=== PATIENT | male | born 1995 | race Hispanic/Latino ===

== ENCOUNTER 2025-05-31 17:21 | Emergency (ER) | payer MEDICAID, SELFPAY ==
[2025-05-31 17:22] VITALS: BP 157/100
--- NOTE | 2025-05-31 17:41 | ED.GENMED ---
History of Present Illness
General
Chief Complaint: Catheter/Tube Problem
Source: patient and family
Time Seen by Provider: 05/31/25 17:35
History of Present Illness
History of Present Illness:
30-year-old male with past medical history of chronic kidney disease (dialysis Friday, , Friday), autism, hypertension presenting to the emergency department for evaluation after his fistula was bleeding following dialysis this afternoon
since 330, due to the persistent bleeding was recommended to come to the ER for further evaluation. Patient without any concerns at this time. Denies any focal weakness, numbness, tingling or color changes to the extremity.
Past History
Past History
ED Past Medical History: HTN, Renal failure and Other (Autistic)
ED Past Surgical History: None
Social History
Tobacco: Non-smoker
Alcohol: None
Drug: None
Personal: Single
Living: with family
Review of Systems
Review of Systems
All Other Systems: ROS reviewed and negative except as documented in HPI and ROS
Phy Exam
Physical Exam
Physical Exam:
GENERAL: Alert , in no apparent distress
EYE: conjunctiva clear
Head: Normocephalic atraumatic
NECK: Supple,
ENT: mmm.
LUNGS: no acute respiratory distress
NEUROLOGICAL: Alert and oriented
SKIN: Warm and dry, skin intact.
MUSCULOSKELETAL: Fistula to the left upper extremity with palpable thrill and good bruit. Dressing in place. Once dressing was removed there was noted very small ooze from the puncture site at the proximalmost portion of the fistula. Extremity
is otherwise warm and well-perfused, neurovascularly intact.
PSYCH: Normal and appropriate interaction.
Scores
Heart Failure Risk
Heart Failure Risk Score: Not Applicable
Heart Score for Chest Pain Patients
STEMI patient?: Not applicable
Withdrawal Assessment of Alcohol
Withdrawal Assessment Completed?: Not applicable
Course
Vital Signs
Initial and Last Documented VS:
Initial Vital Signs
Temp Pulse Resp BP Pulse Ox
98.7 F 107 17 157/100 99
05/31/25 17:22 05/31/25 17:22 05/31/25 17:22 05/31/25 17:22 05/31/25 17:22
Last Documented Vital Signs
Temp Pulse Resp BP Pulse Ox
98.7 F 107 17 157/100 99
05/31/25 17:22 05/31/25 17:22 05/31/25 17:22 05/31/25 17:22 05/31/25 17:45
MDM/Problems Addressed
Differential Diagnosis Includes:
Post venipuncture bleeding
complication with fistula
Anemia
MDM/Problems Addressed:
30-year-old male presenting the ER for evaluation of bleeding from fistula since 330. At time of arrival bleeding seems to be well-controlled. I did take down the dressing that patient presented with and replaced it with nonadherent pad, Kerlix
and an Prashant wrap for better pressure to the area and applied an ice pack over top of this. Will observe patient in the ER for any further bleeding, anticipate discharge home. Patient follows with vascular surgery at [facility] and I
encouraged the family to contact them for follow-up as needed.
*Pulse Oximetry
SaO2: 99
Oxygen Mode of Delivery: Room air
Patient hypoxic: no
*Critical Care Note
Total Time (30-74mins, 75-104mins- exclusive of procedures): Not Applicable
Patient Management
Escalation/DeEscalation of care consider admission/obs:
After close monitoring patient is without any evidence for further bleeding. Stable for discharge home
ED Attending Note
-
Portions of this chart may have been created with voice recognition software.� Occasional wrong word or��sound alike� substitutions may have occurred due to the inherent limitations of voice recognition software.
Discharge Plan
Departure
Patient Disposition: Home (Routine Discharge)
Date of Disposition: 05/31/25
Time of Disposition: 18:17
Patient with high blood pressure during this ER visit?: Yes
Discharge Problem:
Other complication of arteriovenous dialysis fistula
Instructions: Arteriovenous vascular access for hemodialysis
Prescriptions:
No Action
guaifenesin 200 MG/10 ML liquid
200 mg PO Q4HPRN PRN (Reason: cough)
guaifenesin [Mucus Relief ER] 600 MG tablet extended release 12hr
600 mg PO [id number] PRN (Reason: congestion)
furosemide 40 MG tablet
40 mg PO DAILY Qty: 30 0RF
labetalol 200 MG tablet
300 mg PO BID Qty: 60 0RF
isosorbide mononitrate 60 MG tablet extended release 24 hr
60 mg PO DAILY Qty: 30 0RF
amlodipine 10 MG tablet
10 mg PO DAILY Qty: 30 0RF
ergocalciferol (vitamin D2) 50,000 UNITS capsule
50,000 units PO WEEKLY Qty: 8 0RF
ondansetron 4 MG tablet,disintegrating
4 mg PO TIDPRN PRN (Reason: nausea/vomiting) Qty: 12 0RF
Referrals:
Brooklyn Collins MD [Family Provider, Nephrology]
Interventions
Interventions:
*Risk Screen - Suicide Last Done: 05/31/25 17:24
*General Assessment Last Done: 05/31/25 17:24
*Neglect/Abuse Screening Last Done: 05/31/25 17:24
*ED COVID-19 Vaccine History Last Done: 05/31/25 17:24
*ED Influenza Vaccine History Last Done: 05/31/25 17:24
*Nursing Disposition Last Done: 05/31/25 18:31
Discharge Date and Time
Discharge Date/Time: 05/31/25 18:31
Print Language: PASHTO
== END 2025-05-31 18:31 | disposition home or self-care (01) ==
LOC: EMR 17:21
PROVIDERS: EMERGENCY PHYSICIAN Emergency Medicine; FAMILY PHYSICIAN Internal Medicine Nephrology
DX: T82.838A Hemorrhage due to vascular prosthetic devices, implants and grafts, initial encounter (principal); Y84.8 Other medical procedures as the cause of abnormal reaction of the patient, or of later complication, without mention of misadventure at the time of the procedure; I12.0 Hypertensive chronic kidney disease with stage 5 chronic kidney disease or end stage renal disease; N18.6 End stage renal disease; F84.0 Autistic disorder; Z99.2 Dependence on renal dialysis
CPT/HCPCS: 99283